=== PATIENT | female | born 1960 | race African-American/Black ===

== ENCOUNTER 2021-11-06 16:10 | Emergency (ER) | payer MEDICAID ==
[~2021-11-06] VITALS: Ht 157.5 cm; Wt 88.0 kg
[2021-11-06] MEDS ORDERED: ACETAMINOPHEN 325MG TABLET PO STA (16:19)
[2021-11-06] MEDS ORDERED: CELE100C97 MT (19:22)
[2021-11-06 20:26] VITALS: BP 163/89
== END 2021-11-06 20:28 | disposition home or self-care (01) ==
LOC: ER 16:10
DX: S43.401A Unspecified sprain of right shoulder joint, initial encounter (principal); Z90.49 Acquired absence of other specified parts of digestive tract; Z88.6 Allergy status to analgesic agent; X50.9XXA Other and unspecified overexertion or strenuous movements or postures, initial encounter; Y93.89 Activity, other specified; Y92.018 Other place in single-family (private) house as the place of occurrence of the external cause
CPT/HCPCS: 73030; 99283